=== PATIENT | female | born 1955 | race Caucasian/White ===

== ENCOUNTER 2016-05-29 09:09 | Day surgery (SDC) | payer BC ==
[~2016-05-29 09:09] MED LIST: ACETAMINOPHEN 1000MG/100 ML PREMIX IV ONE
[2016-05-29] MEDS ORDERED: BETAMETHASONE 6 MG/1 ML 5ML VIAL IM ONE (15:35)
[2016-05-29] MEDS ORDERED: BUPIVACAINE 0.25% W/EPI MPF 30ML VIAL IVP ONE (15:35)
[2016-05-29] MEDS ORDERED: OXYCODONE HCL/APAP 5MG/325MG TABLET PO ONE (15:35)
[2016-05-29] MEDS ORDERED: PROPOFOL 10 MG/ML VIAL IV ONE (15:43)
[2016-05-29] MEDS ORDERED: FENTANYL PF 100MCG/2ML VIAL IV ONE (15:43)
[2016-05-29] MEDS ORDERED: KETOROLAC 30 MG/ML VIAL IVP ONE (15:43)
[2016-05-29] MEDS ORDERED: LIDOCAINE 2% MDV (20MG/ML) 20ML VIAL IV ONE (15:43)
--- NOTE | 2016-05-30 13:50 | Operative Note ---
DATE OF SURGERY: 05/29/2016 SURGEON: Missael Montgomery DO REFERRING PHYSICIAN: Caden Chowdhury DO PREOPERATIVE DIAGNOSIS: Adhesive capsulitis of the right shoulder. POSTOPERATIVE DIAGNOSIS: Adhesive capsulitis of the right shoulder. OPERATION: 1. Manipulation under anesthesia right shoulder. 2. Injection right shoulder. Anesthesia: General. PROCEDURE: This 60-year-old female was taken to the operating room and placed in the supine position on the operating room table. A general anesthetic was administered, and the right shoulder was taken through a range of motion and we abducted her to about 50 degrees and met solid resistance, and then with gentle manipulation, the shoulder was manipulated to 120 degrees of abduction, 180 degrees of flexion, 90 degrees of external rotation, 90 degrees of internal rotation, full adduction, breaking loose cicatrix at the extremes of motion. The shoulder was then again taken through range of motion and the bony humeral joint was stable. Subsequently, the anterior aspect of the shoulder was prepped and the 22 gauge spinal needle was easily advanced into the glenohumeral joint, which was subsequently injected with 2 mL of and 2 mL of 0.25% Marcaine with epinephrine. Sterile dressing applied. The patient taken to the recovery room in satisfactory condition. GROSS PATHOLOGY: The patient demonstrated adhesive capsulitis which developed after a rotator cuff repair, and failure to progress in physical therapy; it led to surgical alternative, which the patient agreed to have manipulation under anesthesia as described above. MICHAEL
== END 2016-05-29 11:35 | disposition home or self-care (01) ==
LOC: SUR 09:09
PROVIDERS: ATTEND Orthopaedic Surgery
DX: M75.01 Adhesive capsulitis of right shoulder (principal)
CPT/HCPCS: J1885

== ENCOUNTER 2018-07-10 09:13 | Day surgery (SDC) | payer BC ==
[2018-07-10] MEDS ORDERED: PROPOFOL 10 MG/ML VIAL IV ONE (09:14)
[2018-07-10] MEDS ORDERED: LIDOCAINE 2% MDV (20MG/ML) 20ML VIAL IV ONE (09:14)
--- NOTE | 2018-07-10 15:20 | Operative Note ---
OPERATION: COLONOSCOPY. PREOPERATIVE DIAGNOSIS: Personal history of colon polyps. POSTOPERATIVE DIAGNOSIS: Sigmoid diverticulosis. PREPARATION QUALITY: Good. ESTIMATED BLOOD LOSS: None. SPECIMENS: None. COMPLICATIONS: None apparent. PROCEDURE: After informed consent was obtained from the patient, she was placed in the left lateral decubitus position in the endoscopy suite, sedated and monitored by the department of anesthesia. Digital rectal exam was unremarkable. A well-lubricated [id number] colonoscope was inserted into the rectum and advanced to the transverse colon. There was buckling of the colon despite reducing all the looping and as a result, abdominal pressure was required to intubate the cecum. The cecum, cecal bulb, ileocecal valve, and appendiceal orifice were unremarkable. Second views of the cecum were unremarkable as well. The ascending colon, transverse colon, descending colon, sigmoid colon, and rectum were unremarkable other than some mild diverticular changes in the sigmoid colon. The patient did have an episode of retching; however, no gastric contents were noted. There was a small amount of clear fluid that was aspirated via Yankauer suction. Oxygen saturation remained above 90%. There was no abdominal tenseness noted. Retrograde inspection of the colon was unremarkable other than [id number] diverticular changes noted in the sigmoid colon. Forward and J- turn views of the rectum and anorectum were unrevealing. The endoscope was straightened, the rectal ampulla deflated, and the endoscope was removed. RECOMMENDATIONS: The patient should undergo repeat exam in 5 years due to her history of polyps. She should follow a high-fiber diet. As always, thank you for allowing me to participate in the healthcare of your patients. CC: DO MICHAEL Gan
== END 2018-07-10 10:55 | disposition home or self-care (01) ==
LOC: HOP 09:13
PROVIDERS: ATTEND Internal Medicine Gastroenterology
DX: Z12.11 Encounter for screening for malignant neoplasm of colon (principal); Z86.010 Personal history of colon polyps; K57.30 Diverticulosis of large intestine without perforation or abscess without bleeding; J45.909 Unspecified asthma, uncomplicated; M19.90 Unspecified osteoarthritis, unspecified site
CPT/HCPCS: 00812; G0105